=== PATIENT | male | born 2005 | race Caucasian/White ===

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

== ENCOUNTER 2025-03-29 16:26 | Emergency (ER) | payer OTHER ==
[~2025-03-29] VITALS: Ht 182.8 cm; Wt 170.1 kg
[2025-03-29] MEDS ORDERED: PREDNISONE20 M1 PO (18:47)
[2025-03-29] MEDS ORDERED: METHOCARBAMOL750 M1 PO (18:47)
[2025-03-29] MEDS ORDERED: NAPROSYN500 MG PO (18:47)
[2025-03-29] MEDS ORDERED: METHOCARBAMOL 750 MG TAB PO ONE (18:50)
[2025-03-29] MEDS ORDERED: Dexamethasone Sodium Phospha 20 MG/5 ML VIAL IM ONE (18:50)
== END 2025-03-29 18:55 | disposition home or self-care (01) ==
LOC: ED 16:26
DX: S29.012A Strain of muscle and tendon of back wall of thorax, initial encounter (principal); S20.212A Contusion of left front wall of thorax, initial encounter; M46.96 Unspecified inflammatory spondylopathy, lumbar region; V59.9XXA Occupant (driver) (passenger) of pick-up truck or van injured in unspecified traffic accident, initial encounter; Y93.89 Activity, other specified; Y92.410 Unspecified street and highway as the place of occurrence of the external cause; Y99.8 Other external cause status